=== PATIENT | male | born 1975 | race American Indian/Alaskan Native ===

== ENCOUNTER 2024-06-28 14:38 | Emergency (ER) | payer SELFPAY | END 2024-06-28 15:59 | LOC: MW.ED 14:38 | DX: Z02.89 Encounter for other administrative examinations (principal); I10 Essential (primary) hypertension; E11.9 Type 2 diabetes mellitus without complications; F17.210 Nicotine dependence, cigarettes, uncomplicated; Z79.899 Other long term (current) drug therapy; Z75.8 Other problems related to medical facilities and other health care | CPT/HCPCS: 82947; 99283 ==

== ENCOUNTER 2025-08-21 13:23 | Emergency (ER) | payer MEDICAID | END 2025-08-21 14:38 | disposition home or self-care (01) | LOC: MW.ED 13:23 | DX: Z02.89 Encounter for other administrative examinations (principal); I10 Essential (primary) hypertension; E11.9 Type 2 diabetes mellitus without complications; F17.200 Nicotine dependence, unspecified, uncomplicated | CPT/HCPCS: 82947; 99283 ==